=== PATIENT | male | born 1995 | race Asian ===

== ENCOUNTER → 2023-10-22 07:53 | Outpatient (CLI) | payer OTHER, SELFPAY ==
--- NOTE | 2023-10-22 07:57 | DI.MRI.S_ITS ---
PROCEDURE: MR WRIST RT WO CON INDICATIONS: PAIN IN RIGHT WRIST TECHNIQUE: Noncontrast coronal proton density fast spin echo and T2 fast spin echo with fat saturation; coronal 3-D gradient echo, axial T1 spin echo and T2 fast spin echo with fat saturation, sagittal T1 spin echo through the wrist. COMPARISON: None. FINDINGS: Image quality: Excellent. Bones and cartilage: The carpal bones are normally aligned. There is mild marrow edema involving distal radius, lunate and triquetrum as well as hamate. No discrete fracture line or cortical disruption. No other area of abnormal marrow signal. No evidence for avascular necrosis. Overlying cartilage surfaces appear normal. Carpal ligaments: The scapholunate and lunotriquetral ligaments appear intact. In the absence of intra-articular contrast, the extrinsic carpal ligaments are not well identified. On sagittal images, the pisohamate ligament appears intact. Triangular fibrocartilage complex: Subtle signal abnormality involving triangular fibrocartilage near its radial insertion concerning for subtle TFC perforation. The adjacent meniscal homolog appears normal in the absence of intra-articular contrast. The extensor carpi ulnaris tendon is thickened at the level of ulnar styloid. Tendons and soft tissues: The carpal tunnel structures appear normal, including the median nerve. The ulnar nerve appears normal within Guyon's canal. All six extensor tendon compartments demonstrate normal morphology, without pathologic tendon sheath fluid. No soft tissue ganglion cysts. IMPRESSION: 1. Bony contusion involving distal radius, and multiple carpal bones. No discrete fracture line. No evidence of avascular necrosis. 2. Intrinsic and extrinsic wrist ligaments are grossly intact. 3. Finding is concerning for subtle TFC perforation near its radial insertion. 4. Tendinosis involving extensor carpi ulnaris tendon at the level of ulnar styloid. Rest of the extensor and flexor tendons are intact. Dictated by: Josemanuel Wilson M.D. on 10/22/2023 at 15:19 Approved by: Josemanuel Wilson M.D. on 10/22/2023 at 15:22
== END ==
PROVIDERS: PCP Nurse Practitioner Family; Referring Provider Nurse Practitioner Family; Visit Provider Nurse Practitioner Family
DX: S50.11XA Contusion of right forearm, initial encounter (principal); S60.221A Contusion of right hand, initial encounter; M25.531 Pain in right wrist
CPT/HCPCS: 73221